=== PATIENT | female | born 1985 | race Caucasian/White ===

== ENCOUNTER 2022-06-23 13:21 | Outpatient (REF) | payer OTHER, SELFPAY ==
[2022-06-23 19:36] LABS: Abs Immature Grans 0.01 10^3/uL (0.0-0.06); Absolute Basophil Count 0.04 10^3/uL (0.0-0.2); Absolute Eosinophil Count 0.13 10^3/uL (0.0-0.7); Absolute Lymphocyte Count 1.01 10^3/uL (1.2-3.4); Absolute Monocyte Count 0.37 10^3/uL (0.1-0.8); Absolute Neutrophil Count 3.58 10^3/uL (1.2-6.7); Basophils % 0.8; Eosinophils % 2.5; HCT 35.9 % (36.0-46.0); HGB 12.3 g/dL (11.2-15.7); Immature Grans % 0.2; Lymphocytes % 19.6; MCH 31.1 pg (27.0-33.0); MCHC 34.3 % (32.0-36.0); MCV 91 fL (80-95); MPV 10.4 fL (8.0-11.0); Monocytes % 7.2; Neutrophils % 69.7; Platelet Count 164 10^3/uL (130-400); RBC 3.96 10^6/uL (3.93-5.22); RDW 13.1 % (11.7-14.6); RDW-SD 43.2 fL; WBC 5.14 10^3/uL (4.4-10.8)
[2022-06-23 20:04] LABS: ALT 28 U/L (14-59); AST 26 U/L (15-37); Albumin 4.2 g/dL (3.4-5.0); Alkaline Phosphatase 55 U/L (46-116); Anion Gap 7.1 mmol/L (3-11); BUN 16 mg/dL (7-18); Bilirubin, Total 1.6 mg/dL (0.2-1.0); CO2 27.9 mmol/L (21.0-32.0); CREATININE 0.8 mg/dL (0.55-1.02); Calcium 9.4 mg/dL (8.5-10.1); Chloride 101 mmol/L (98-107); Estimated GFR 97.87 (mL/min/1.73m2); Glucose 94 mg/dL (74-106); Potassium 4.4 mmol/L (3.5-5.1); Sodium 136 mmol/L (136-145); TSH (W/Ref FT4) 0.47 uIU/mL (0.36-3.74); Total Protein 7.8 g/dL (6.4-8.2)
== END 2022-06-23 13:22 | disposition home or self-care (01) ==
LOC: NCHCN 13:21
PROVIDERS: Visit Provider Nurse Practitioner Family
DX: R53.83 Other fatigue (principal); Z86.2 Personal history of diseases of the blood and blood-forming organs and certain disorders involving the immune mechanism; Z13.1 Encounter for screening for diabetes mellitus
CPT/HCPCS: 80053; 84443; 85025

== ENCOUNTER 2022-07-19 15:36 | Outpatient (REF) | payer OTHER, SELFPAY ==
--- NOTE | 2022-07-19 15:20 | PAPFT_PTH ---
PATIENT: Melodie Ghosh LOC: [facility] U#:[id number] AGE/SX: 37/F ROOM: RE07/19/[address]: Anahi Gimenez NP : 1985 BED: DIS: 07/19/2022 SPEC #: [id number] RECD: 07/20/22 13:01 STATUS: JANETH CESAR #: [id number] NIKO: 07/19/22 15:[address]: Anahi Gimenez NP DEPT: [facility] Cytology RECD BY: Basilia Lou Tissues: 1 - CX/ENDOCX FOR PAP SMEARS Procedures: PAP THIN PREP/[facility] Screening HPV DNA PROBE Comments: [id number]
== END 2022-07-19 15:37 | disposition home or self-care (01) ==
LOC: LBN 15:36
PROVIDERS: Visit Provider Nurse Practitioner Women's Health
DX: Z12.4 Encounter for screening for malignant neoplasm of cervix (principal); Z11.51 Encounter for screening for human papillomavirus (HPV); Z87.42 Personal history of other diseases of the female genital tract
CPT/HCPCS: 88142; 87624

== ENCOUNTER 2022-07-27 16:23 | Outpatient (REF) | payer OTHER, SELFPAY ==
[2022-07-27 20:23] LABS: Iron 90 ug/dL (50-170); Total Iron Binding Capacity 310 ug/dL (250-450); Transferrin Sat 29 % (15-50)
[2022-07-27 20:48] LABS: Ferritin 168 ng/mL (8-252); TSH 0.64 uIU/mL (0.36-3.74); Vitamin B12 376 pg/mL (193-986)
[2022-07-27 20:51] LABS: Folate > 20.0 ng/mL (8.6-20.0)
[2022-07-27 22:55] LABS: Vitamin D 25 Total 82.3 ng/mL (30-100)
== END 2022-07-27 16:24 | disposition home or self-care (01) ==
LOC: NCHCN 16:23
PROVIDERS: Visit Provider Registered Nurse
DX: R53.83 Other fatigue (principal); F32.89 Other specified depressive episodes; Z86.2 Personal history of diseases of the blood and blood-forming organs and certain disorders involving the immune mechanism
CPT/HCPCS: 82306; 82607; 82728; 82746; 83540; 83550; 84443

== ENCOUNTER 2023-08-01 15:08 | Outpatient (REF) | payer OTHER, SELFPAY ==
[2023-08-01 18:55] LABS: Abs Immature Grans 0.01 10^3/uL (0.0-0.06); Absolute Basophil Count 0.03 10^3/uL (0.0-0.2); Absolute Eosinophil Count 0.16 10^3/uL (0.0-0.7); Absolute Lymphocyte Count 1.63 10^3/uL (1.2-3.4); Absolute Monocyte Count 0.42 10^3/uL (0.1-0.8); Basophils % 0.5; Eosinophils % 2.6; HCT 37.3 % (36.0-46.0); HGB 13.1 g/dL (11.2-15.7); Immature Grans % 0.2; Lymphocytes % 26.1; MCH 30.9 pg (27.0-33.0); MCHC 35.1 % (32.0-36.0); MCV 88 fL (80-95); MPV 10.8 fL (8.0-11.0); Monocytes % 6.7; Neutrophils % 63.9; Platelet Count 171 10^3/uL (130-400); RBC 4.24 10^6/uL (3.93-5.22); RDW 12.4 % (11.7-14.6); RDW-SD 39.8 fL; WBC 6.25 10^3/uL (4.4-10.8)
[2023-08-01 19:34] LABS: TSH (W/Ref FT4) 0.57 uIU/mL (0.36-3.74)
[2023-08-01 19:36] LABS: Folate > 20.0 ng/mL (8.6-20.0); Vitamin B12 > 2000 pg/mL (193-986)
[2023-08-01 19:46] LABS: Vitamin D 25 Total 67.3 ng/mL (30-100)
== END 2023-08-01 15:09 | disposition home or self-care (01) ==
LOC: NCHCN 15:08
PROVIDERS: PCP Nurse Practitioner Family; Visit Provider Nurse Practitioner Family
DX: R53.83 Other fatigue (principal)
CPT/HCPCS: 82306; 82607; 82746; 84443; 85025